=== PATIENT | female | born 1980 | race Caucasian/White ===

== ENCOUNTER 2017-01-23 17:25 | Emergency (ER) | payer OTHER ==
[~2017-01-23] VITALS: Ht 154.9 cm; Wt 65.8 kg
[2017-01-23 17:25] VITALS: BP 160/56
--- NOTE | 2017-01-23 17:31 | NUR ---
CALLED RT FOR BREATHING TREATMENT
[2017-01-23] MEDS ORDERED: ALBUTEROL FS 2.5 MG/3 ML VIAL.NEB ONE (18:00)
[2017-01-23] MEDS ORDERED: ALBUTEROL FS 2.5 MG/3 ML VIAL.NEB NEB ONE (18:00)
== END 2017-01-23 19:33 | disposition home or self-care (01) ==
LOC: ER 17:28
DX: J45.909 Unspecified asthma, uncomplicated (principal); F17.200 Nicotine dependence, unspecified, uncomplicated
CPT/HCPCS: 94640 ×2; 99284; 99406; A4606; Z7610

== ENCOUNTER 2017-09-23 10:43 | Emergency (ER) | payer OTHER ==
[~2017-09-23] VITALS: Ht 154.9 cm; Wt 65.8 kg
[2017-09-23] MEDS: ALBUTEROL FS 2.5 MG/3 ML VIAL.NEB CONTNEB ONE (10:54)
[2017-09-23] MEDS: IPRATROPIUM NEB FS 0.5 MG/2.5 ML AMPUL.NEB NEB ONE (10:54)
[2017-09-23] MEDS ORDERED: IPRATROPIUM NEB FS 0.5 MG/2.5 ML AMPUL.NEB ONE (10:56)
[2017-09-23] MEDS ORDERED: ALBUTEROL FS 2.5 MG/3 ML VIAL.NEB ONE (10:56)
--- NOTE | 2017-09-23 11:18 | NUR ---
REFUSED PIV AND LAB TEST,STS, SHE JUST WANTS BREATHING TX, DR BRYANT INFORMED
[2017-09-23] MEDS: Magnesium 1GM/D5W 100ML PREMIX 200 ML IV ONE (11:19)
[2017-09-23] MEDS: methylPREDNISolone SOD SUCC 125 MG/2ML VIAL IV ONE (11:20)
--- NOTE | 2017-09-23 12:00 | NUR ---
RT AT BS FOR BREATHING TX.
--- NOTE | 2017-09-23 13:23 | NUR ---
Patient discharged to home in stable condition. Written and verbal after care instructions given. Patient verbalizes understanding of instruction.
[2017-09-23 13:24] VITALS: BP 134/88
== END 2017-09-23 13:24 | disposition home or self-care (01) ==
LOC: ER 10:44
DX: J45.901 Unspecified asthma with (acute) exacerbation (principal); F17.200 Nicotine dependence, unspecified, uncomplicated
CPT/HCPCS: 94644; 99285; 99406; A4606; Z7610

== ENCOUNTER 2017-10-30 10:54 | Emergency (ER) | payer OTHER ==
[~2017-10-30] VITALS: Ht 154.9 cm; Wt 68.0 kg
[2017-10-30 10:59] VITALS: BP 137/87
== END 2017-10-30 11:20 ==
LOC: ER 10:55
DX: F19.10 Other psychoactive substance abuse, uncomplicated (principal); J45.909 Unspecified asthma, uncomplicated; F17.200 Nicotine dependence, unspecified, uncomplicated; Z98.890 Other specified postprocedural states; Z60.2 Problems related to living alone
CPT/HCPCS: 99283; A4606; Z7610